=== PATIENT | female | born 1950 | race Two or more races ===

== ENCOUNTER → 2020-12-17 | Outpatient (REF) | payer BC ==
[2020-12-17 13:52] LABS: HEMATOCRIT 39.8 % (36.0-47.0); HEMOGLOBIN 12.3 g/dl (12.0-15.5); MEAN CORPUSCULAR HEMOGLOBIN 29.1 pg (27.0-33.0); MEAN CORPUSCULAR HGB CONC 30.9 g/dl (32.0-36.5); MEAN CORPUSCULAR VOLUME 94.3 fl (80.0-96.0); PLATELET COUNT, AUTOMATED 329 10^3/uL (150-450); RED BLOOD COUNT 4.22 10^6/uL (4.00-5.40); WHITE BLOOD COUNT 5.4 10^3/uL (4.0-10.0)
[2020-12-17 14:26] LABS: ALBUMIN 3.7 GM/DL (3.2-5.2); BILIRUBIN,TOTAL 0.3 MG/DL (0.2-1.0); CALCIUM LEVEL 9.6 MG/DL (8.8-10.2); CHOLESTEROL RISK RATIO 2.04 (<5); GLOMERULAR FILTRATION RATE 58.4 (>39); POTASSIUM SERUM 3.8 MEQ/L (3.5-5.1); TOTAL PROTEIN 6.6 GM/DL (6.4-8.2)
[2020-12-17 14:32] LABS: TOTAL 25(OH) VITAMIN D 35.6 NG/ML (30.0-100.0)
== END ==
LOC: M SFHCPLAZ 11:58
PROVIDERS: ATTEND Physician Assistant
DX: E78.2 Mixed hyperlipidemia (principal); J45.40 Moderate persistent asthma, uncomplicated; I11.9 Hypertensive heart disease without heart failure; Z00.00 Encounter for general adult medical examination without abnormal findings

== ENCOUNTER → 2020-12-24 | Outpatient (REF) | payer BC ==
[2020-12-24 15:56] LABS: MALB URINE SIEMENS 9.2 MG/L; MAU/CREAT RATIO 3.4 MCG/MG (0.0-30.0)
== END ==
LOC: M SFHCPLAZ 14:47
PROVIDERS: ATTEND Physician Assistant
DX: I11.9 Hypertensive heart disease without heart failure (principal)

== ENCOUNTER → 2020-12-24 | Outpatient (CLI) | payer BC ==
--- NOTE | 2021-01-01 13:37 | REPMRS ---
Patient History The patient states she has not had a clinical breast exam in over a year. Patient is postmenopausal. Family history of breast cancer at age 72 in sister, prostate cancer at age 68 in father. Digital Woman Screen Mammo: December 24, 2020 - Exam #: [id number] Bilateral CC and MLO view(s) were taken. Technologist: Amy Mcclendon, Technologist Prior study comparison: October 26, 2019, bilateral digital mammo screening bilat, performed at [facility]. September 22, 2018, bilateral digital mammo screening bilat, performed at [facility]. August 21, 2017, bilateral digital mammo screening bilat, performed at [facility]. FINDINGS: There are scattered fibroglandular densities. The Volpara volumetric breast density category is:B. There has been no change in the appearance of the mammogram from the prior studies. There is a mild amount of scattered fibroglandular density which is fairly symmetric. There is no interval development of dominant mass, architectural distortion, or grouped microcalcification suggestive of malignancy. 3-D tomosynthesis shows no additional findings. Assessment: BI-RADS/ACR category 1 mammogram. Negative Mammogram. Recommendation Routine screening mammogram of both breasts in 1 year (for women over age 40). This patient's [facility] Lifetime Breast Cancer Risk is estimated at 5.6 %. This mammogram was interpreted with the aid of an FDA-approved computer-aided dectection system. Electronically Signed By: Bertin Jones MD 01/01/21 [id number]
== END ==
LOC: M WHC 12:27
PROVIDERS: ATTEND Physician Assistant
DX: Z12.31 Encounter for screening mammogram for malignant neoplasm of breast (principal)

== ENCOUNTER → 2021-01-21 | Outpatient (REF) | payer BC ==
[2021-01-21 14:37] LABS: HEMOGLOBIN A1c 5.8 %
== END ==
LOC: M SFHCPLAZ 11:20
PROVIDERS: ATTEND Physician Assistant
DX: R73.01 Impaired fasting glucose (principal)

== ENCOUNTER → 2021-07-23 | Outpatient (CLI) | payer BC ==
--- NOTE | 2021-07-23 09:47 | REP ---
INDICATION: RIGHT KNEE OSTEOARTHRITIS COMPARISON: None. TECHNIQUE: PA and lateral. FINDINGS: The mediastinum and cardiac silhouette are normal. The lung jack are clear and without acute consolidation, effusion, or pneumothorax. The skeletal structures are intact and normal. IMPRESSION: No acute cardiopulmonary process. <Electronically signed by Fritz Young > 07/23/21 [id number]
[2021-07-23 10:22] LABS: HEMOGLOBIN 12.1 g/dl (12.0-15.5); MEAN CORPUSCULAR HEMOGLOBIN 30.1 pg (27.0-33.0); MEAN CORPUSCULAR HGB CONC 31.8 g/dl (32.0-36.5); MEAN CORPUSCULAR VOLUME 94.5 fl (80.0-96.0); PLATELET COUNT, AUTOMATED 363 10^3/uL (150-450); RED BLOOD COUNT 4.02 10^6/uL (4.00-5.40); WHITE BLOOD COUNT 5.2 10^3/uL (4.0-10.0)
[2021-07-23 10:34] LABS: INR 0.96; PROTHROMBIN TIME 13.2 SECONDS (12.7-14.5)
[2021-07-23 10:43] LABS: ALBUMIN 3.7 GM/DL (3.2-5.2); BILIRUBIN,TOTAL 0.3 MG/DL (0.2-1.0); CALCIUM LEVEL 9.8 MG/DL (8.8-10.2); CREATININE FOR GFR 0.99 MG/DL (0.55-1.30); GLOMERULAR FILTRATION RATE 58.9 (>39); POTASSIUM SERUM 4.1 MEQ/L (3.5-5.1); TOTAL PROTEIN 6.8 GM/DL (6.4-8.2)
[2021-07-23 11:04] LABS: ERYTHROCYTE SEDIMENTATION RATE 16 mm/hr (0-30)
--- NOTE | 2021-07-23 21:21 | ECGEPIP ---
[facility] Test Date: 2021-07-23 Pat Name: JOSE GRIMES Department: Room: - Gender: Female Ocularist: [facility] : 1950 Requested By: Uriel Pittman Order Number: [id number] Reading MD: Julian Nelson Measurements Intervals [place] Rate: 75 P: 28 [place]: 124 QRS: 31 QRSD: 98 T: 27 QT: 384 QTc: 428 Interpretive Statements Normal sinus rhythm Incomplete right bundle branch block Nonspecific T wave abnormality Comparison tracing not on file Electronically Signed on 07-23-2021 21:21:02 EDT by Julian Nelson
== END ==
LOC: M LAB 09:10
PROVIDERS: ATTEND Orthopaedic Surgery
DX: Z01.818 Encounter for other preprocedural examination (principal)

== ENCOUNTER → 2021-12-17 | Outpatient (CLI) | payer BC ==
[2021-12-17 15:30] LABS: BASO % 0.3 % (0.0-1.0); EOS # 0.1 10^3/uL (0.0-0.5); EOS % 1.3 % (0.0-3.0); HEMOGLOBIN 12.7 g/dl (12.0-15.5); LYMPH # 0.9 10^3/uL (1.5-5.0); LYMPH % 14.7 % (24.0-44.0); MEAN CORPUSCULAR HEMOGLOBIN 29.5 pg (27.0-33.0); MEAN CORPUSCULAR HGB CONC 32.6 g/dl (32.0-36.5); MEAN CORPUSCULAR VOLUME 90.5 fl (80.0-96.0); MONO # 0.6 10^3/uL (0.0-0.8); MONO % 10.5 % (2.0-8.0); NEUTROPHILS # 4.5 10^3/uL (1.5-8.5); NEUTROPHILS % 72.9 % (36.0-66.0); PLATELET COUNT, AUTOMATED 338 10^3/uL (150-450); RED BLOOD COUNT 4.31 10^6/uL (4.00-5.40); WHITE BLOOD COUNT 6.1 10^3/uL (4.0-10.0)
[2021-12-17 16:00] LABS: ALBUMIN 3.9 GM/DL (3.2-5.2); ALT/SGPT 23 U/L (12-78); BILIRUBIN,TOTAL 0.3 MG/DL (0.2-1.0); BLOOD UREA NITROGEN 14 MG/DL (7-18); CARBON DIOXIDE LEVEL 33 MEQ/L (21-32); CHLORIDE LEVEL 106 MEQ/L (98-107); CHOLESTEROL LEVEL 232 MG/DL (<200); CHOLESTEROL RISK RATIO 2.367 (<5); CREATININE FOR GFR 0.88 MG/DL (0.55-1.30); GLOMERULAR FILTRATION RATE > 60.0 (>39); GLUCOSE, FASTING 87 MG/DL (70-100); HDL CHOLESTEROL 98 MG/DL (>40); HEMOGLOBIN A1c 5.8 %; LDL CHOLESTEROL 117 MG/DL (<100); NON-HDL-C 134 MG/DL; POTASSIUM SERUM 4.1 MEQ/L (3.5-5.1); SODIUM LEVEL 142 MEQ/L (136-145); TOTAL PROTEIN 6.8 GM/DL (6.4-8.2); TRIGLYCERIDES LEVEL 87 MG/DL (<150)
[2021-12-17 16:09] LABS: TOTAL 25(OH) VITAMIN D 37.4 NG/ML (30.0-100.0)
== END ==
LOC: M PLALAB 11:58
PROVIDERS: ATTEND Nurse Practitioner Family
DX: E55.9 Vitamin D deficiency, unspecified (principal)

== ENCOUNTER → 2021-12-25 | Outpatient (CLI) | payer BC | LOC: M WHC 13:36 | PROVIDERS: ATTEND Family Medicine | DX: Z12.31 Encounter for screening mammogram for malignant neoplasm of breast (principal) ==

== ENCOUNTER → 2022-07-04 | Outpatient (CLI) | payer BC ==
[2022-07-04 13:34] LABS: BASO # 0.1 10^3/uL (0.0-0.2); BASO % 1.4 % (0.0-1.0); EOS # 0.2 10^3/uL (0.0-0.5); EOS % 5.4 % (0.0-3.0); HEMATOCRIT 39.9 % (36.0-47.0); HEMOGLOBIN 12.4 g/dl (12.0-15.5); LYMPH # 1.5 10^3/uL (1.5-5.0); LYMPH % 33.8 % (24.0-44.0); MEAN CORPUSCULAR HEMOGLOBIN 29.7 pg (27.0-33.0); MEAN CORPUSCULAR HGB CONC 31.1 g/dl (32.0-36.5); MEAN CORPUSCULAR VOLUME 95.5 fl (80.0-96.0); MONO # 0.5 10^3/uL (0.0-0.8); MONO % 11.2 % (2.0-8.0); NEUTROPHILS # 2.1 10^3/uL (1.5-8.5); NEUTROPHILS % 47.7 % (36.0-66.0); PLATELET COUNT, AUTOMATED 374 10^3/uL (150-450); RED BLOOD COUNT 4.18 10^6/uL (4.00-5.40); WHITE BLOOD COUNT 4.3 10^3/uL (4.0-10.0)
[2022-07-04 14:51] LABS: ALBUMIN 3.8 GM/DL (3.2-5.2); BILIRUBIN,TOTAL 0.3 MG/DL (0.2-1.0); CALCIUM LEVEL 9.6 MG/DL (8.8-10.2); CHOLESTEROL RISK RATIO 2.113 (<5); CREATININE FOR GFR 1.01 MG/DL (0.55-1.30); GLOMERULAR FILTRATION RATE 57.4 (>39); POTASSIUM SERUM 4.1 MEQ/L (3.5-5.1)
[2022-07-04 15:27] LABS: HEMOGLOBIN A1c 5.7 %
== END ==
LOC: M PLALAB 10:26
PROVIDERS: ATTEND Nurse Practitioner Family
DX: R73.01 Impaired fasting glucose (principal)

== ENCOUNTER → 2022-08-20 | Outpatient (REF) | payer BC ==
[2022-08-20 17:21] LABS: APPEARANCE, URINE MANUAL CLEAR (CLEAR); COLOR, URINE MANUAL YELLOW (YELLOW)
[2022-08-20 17:22] LABS: BILIRUBIN, URINE MANUAL NEGATIVE (NEGATIVE); BLOOD URINE MANUAL TRACE (NEGATIVE); GLUCOSE, URINE (UA) MANUAL NEGATIVE (NEGATIVE); KETONE, URINE MANUAL NEGATIVE (NEGATIVE); LEUKOCYTE ESTERASE, URINE MAN NEGATIVE (NEGATIVE); NITRITE, URINE MANUAL NEGATIVE (NEGATIVE); PROTEIN, URINE MANUAL TRACE mg/dL (NEGATIVE); SPECIFIC GRAVITY,URINE MANUAL 1.015 (1.002-1.035); UROBILINOGEN, URINE MANUAL NORMAL (NORMAL)
[2022-08-20 18:11] LABS: RBC, URINE 0-1 /hpf (0-3)
[2022-08-20 18:12] LABS: BACTERIA, URINE SMALL AMOUNT; HYALINE CAST, URINE 0-1 /lpf (0-1); SQUAMOUS EPITHELIAL CELL URINE SMALL AMOUNT /hpf (SMALL AMT)
== END ==
LOC: M SMT 16:44
PROVIDERS: ATTEND Urology
DX: N32.81 Overactive bladder (principal)

== ENCOUNTER 2022-09-07 13:00 | Emergency (ER) | payer BC ==
[~2022-09-07] VITALS: Ht 157.5 cm; Wt 86.4 kg
[2022-09-07 13:01] VITALS: BP 160/76
[2022-09-07] MEDS ORDERED: TRIA1OI TOP (13:53)
[2022-09-07] MEDS ORDERED: PRED20TA PO (13:53)
== END 2022-09-07 14:16 | disposition home or self-care (01) ==
LOC: M ED 13:00
DX: L20.9 Atopic dermatitis, unspecified (principal); J45.909 Unspecified asthma, uncomplicated; K21.9 Gastro-esophageal reflux disease without esophagitis; Z79.899 Other long term (current) drug therapy

== ENCOUNTER → 2022-12-01 | Outpatient (CLI) | payer BC, MEDICARE ==
[~2022-12-01] MED LIST: PRED20TA PO; TRIA1OI TOP
[2022-12-01 14:05] LABS: HEMATOCRIT 38.7 % (36.0-47.0); MEAN CORPUSCULAR HEMOGLOBIN 29.3 pg (27.0-33.0); MEAN CORPUSCULAR VOLUME 94.6 fl (80.0-96.0); PLATELET COUNT, AUTOMATED 372 10^3/uL (150-450); RED BLOOD COUNT 4.09 10^6/uL (4.00-5.40); WHITE BLOOD COUNT 4.9 10^3/uL (4.0-10.0)
[2022-12-01 14:15] LABS: ALBUMIN 3.6 G/DL (3.2-5.2); ALKALINE PHOSPHATASE 54 U/L (46-116); ALT/SGPT 21 U/L (7.0-40); AST/SGOT 22 U/L (<34); BILIRUBIN,TOTAL 0.3 MG/DL (0.3-1.2); BLOOD UREA NITROGEN 12 MG/DL (9-23); CALCIUM LEVEL 9.8 MG/DL (8.3-10.6); CARBON DIOXIDE LEVEL 32 MMOL/L (20-31); CHLORIDE LEVEL 104 MMOL/L (98-107); CREATININE FOR GFR 0.84 MG/DL (0.55-1.30); GLOMERULAR FILTRATION RATE > 60.0 (>39); GLUCOSE, FASTING 89 MG/DL (74-106); POTASSIUM SERUM 4.1 MMOL/L (3.5-5.1); SODIUM LEVEL 142 MMOL/L (136-145); TOTAL PROTEIN 6.4 G/DL (5.7-8.2)
[2022-12-01 14:16] LABS: INR 0.9; PROTHROMBIN TIME 12.3 SECONDS (12.5-14.5)
== END ==
LOC: M PLALAB 10:34
PROVIDERS: ATTEND Urology
DX: N32.81 Overactive bladder (principal)

== ENCOUNTER → 2022-12-08 | Outpatient (CLI) | payer BC, MEDICARE ==
[~2022-12-08] MED LIST changes: +ALBU2.5V10 INH; +BREO1INH3 INH; +ESOM40CA35 PO; +FENO160T10 PO; +HM C500T4 PO; +NIFE1TAB52 PO; +PAIN PATCH TOP; +PRAV80TA2 PO; +TACR0.1O4 TOP; +VALS1TAB67 PO; +VENTAER INH; +VITA100093 PO; +[UNRECOGNIZED DRUG - OTHER] PO
== END ==
LOC: M LABSMTC 11:55
PROVIDERS: ATTEND Anesthesiology
DX: Z01.812 Encounter for preprocedural laboratory examination (principal)

== ENCOUNTER 2022-12-11 06:06 | Day surgery (SDC) | payer BC, MEDICARE ==
[~2022-12-11] VITALS: Ht 157.5 cm; Wt 89.8 kg
[~2022-12-11 06:06] MED LIST changes: +ceFAZolin SOD 2 GM in IV 1 EA IV ONE
[2022-12-11] MEDS ORDERED: LR 1,000 ML IV SCH (06:40)
[2022-12-11] MEDS ORDERED: propofoL 200 MG/20 ML VIAL As Ordered ONE (07:11)
[2022-12-11] MEDS ORDERED: ONDANSETRON 4MG 2ML VIAL As Ordered ONE (07:11)
[2022-12-11] MEDS ORDERED: LIDOCAINE 2% 100MG/5ML SDV (FOR ANES.) As Ordered ONE (07:11)
[2022-12-11] MEDS ORDERED: MIDAZOLAM INJ 2MG/2ML VIAL As Ordered ONE (07:11)
[2022-12-11] MEDS ORDERED: LIDOCAINE 1% SDV 30ML VIAL As Ordered ONE ×2 (07:14→07:52)
[2022-12-11] MEDS ORDERED: CLEO300C2 PO (08:08)
[2022-12-11 09:23] VITALS: BP 162/88
== END 2022-12-11 09:36 | disposition home or self-care (01) ==
LOC: M SDC 06:06
PROVIDERS: ATTEND Urology
DX: N32.81 Overactive bladder (principal); I10 Essential (primary) hypertension; E78.5 Hyperlipidemia, unspecified; K21.9 Gastro-esophageal reflux disease without esophagitis; J45.909 Unspecified asthma, uncomplicated; G47.30 Sleep apnea, unspecified; Z88.0 Allergy status to penicillin; Z88.8 Allergy status to other drugs, medicaments and biological substances; Z79.51 Long term (current) use of inhaled steroids; Z79.899 Other long term (current) drug therapy
CPT/HCPCS: 64561; 76000; C1787; J0690; J1100; J2250; J2405

== ENCOUNTER → 2022-12-22 | Outpatient (CLI) | payer BC, MEDICARE ==
[~2022-12-22] MED LIST changes: +CLEO300C2 PO; -ceFAZolin SOD 2 GM in IV 1 EA IV ONE
== END ==
LOC: M LABSMTC 10:30
PROVIDERS: ATTEND Urology
DX: Z01.812 Encounter for preprocedural laboratory examination (principal); Z11.52 Encounter for screening for COVID-19

== ENCOUNTER 2022-12-24 06:15 | Day surgery (SDC) | payer MEDICARE, BC ==
[~2022-12-24] VITALS: Ht 157.5 cm; Wt 89.7 kg
[~2022-12-24 06:15] MED LIST changes: +ceFAZolin SOD 2 GM in IV 1 EA IV ONE
[2022-12-24] MEDS ORDERED: fentaNYL 100 MCG/2 ML INJECTION As Ordered ONE (06:53)
[2022-12-24] MEDS ORDERED: ACETAMINOPHEN 1000MG 100ML IV BAG As Ordered ONE (06:55)
[2022-12-24] MEDS ORDERED: LIDOCAINE 2% 100MG/5ML SDV (FOR ANES.) As Ordered ONE (06:55)
[2022-12-24] MEDS ORDERED: ONDANSETRON 4MG 2ML VIAL As Ordered ONE (06:55)
[2022-12-24] MEDS ORDERED: propofoL 200 MG/20 ML VIAL As Ordered ONE (06:55)
[2022-12-24] MEDS ORDERED: LR 1,000 ML IV SCH (07:05)
[2022-12-24] MEDS ORDERED: LIDOCAINE 1% SDV 30ML VIAL As Ordered ONE ×2 (07:23→08:01)
[2022-12-24] MEDS ORDERED: ceFAZolin 1GM VIAL As Ordered ONE (07:25)
[2022-12-24] MEDS ORDERED: CLIN-250 PO (08:49)
[2022-12-24] MEDS ORDERED: HYDR-3713 PO (08:49)
[2022-12-24 09:54] VITALS: BP 135/72
== END 2022-12-24 10:10 | disposition home or self-care (01) ==
LOC: M SDC 06:15
PROVIDERS: ATTEND Urology
DX: N32.81 Overactive bladder (principal); I10 Essential (primary) hypertension; E78.5 Hyperlipidemia, unspecified; K21.9 Gastro-esophageal reflux disease without esophagitis; J45.40 Moderate persistent asthma, uncomplicated; Z79.51 Long term (current) use of inhaled steroids; Z79.899 Other long term (current) drug therapy; E55.9 Vitamin D deficiency, unspecified; J30.89 Other allergic rhinitis; Z88.0 Allergy status to penicillin; Z88.1 Allergy status to other antibiotic agents
CPT/HCPCS: 64581; 64590; 76000; C1778; C1787; C1897; J0131; J0690; J1100; J2405; J3010

== ENCOUNTER → 2023-01-02 | Outpatient (CLI) | payer BC, MEDICARE ==
[~2023-01-02] MED LIST changes: +CLIN-250 PO; +HYDR-3713 PO; -ceFAZolin SOD 2 GM in IV 1 EA IV ONE
[2023-01-02 14:18] LABS: BASO # 0.1 10^3/uL (0.0-0.2); BASO % 1.4 % (0.0-1.0); EOS # 0.4 10^3/uL (0.0-0.5); EOS % 7.4 % (0.0-3.0); HEMOGLOBIN 11.6 g/dl (12.0-15.5); LYMPH # 1.4 10^3/uL (1.5-5.0); LYMPH % 24.7 % (24.0-44.0); MEAN CORPUSCULAR HEMOGLOBIN 29.8 pg (27.0-33.0); MEAN CORPUSCULAR HGB CONC 31.4 g/dl (32.0-36.5); MEAN CORPUSCULAR VOLUME 95.1 fl (80.0-96.0); MONO # 0.6 10^3/uL (0.0-0.8); MONO % 10.5 % (2.0-8.0); NEUTROPHILS # 3.1 10^3/uL (1.5-8.5); NEUTROPHILS % 55.3 % (36.0-66.0); PLATELET COUNT, AUTOMATED 405 10^3/uL (150-450); RED BLOOD COUNT 3.89 10^6/uL (4.00-5.40); WHITE BLOOD COUNT 5.5 10^3/uL (4.0-10.0)
[2023-01-02 14:44] LABS: HEMOGLOBIN A1c 5.6 % (4.0-6.0)
[2023-01-02 14:49] LABS: ALBUMIN 3.6 G/DL (3.2-5.2); ALKALINE PHOSPHATASE 50 U/L (46-116); ALT/SGPT 26 U/L (7.0-40); AST/SGOT 19 U/L (<34); BILIRUBIN,TOTAL 0.4 MG/DL (0.3-1.2); BLOOD UREA NITROGEN 12 MG/DL (9-23); CALCIUM LEVEL 9.2 MG/DL (8.3-10.6); CARBON DIOXIDE LEVEL 32 MMOL/L (20-31); CHLORIDE LEVEL 107 MMOL/L (98-107); CHOLESTEROL LEVEL 190 MG/DL (<200); CHOLESTEROL RISK RATIO 2.25 (<5); CREATININE FOR GFR 0.89 MG/DL (0.55-1.30); GLOMERULAR FILTRATION RATE > 60.0 (>39); GLUCOSE, FASTING 86 MG/DL (74-106); HDL CHOLESTEROL 84.3 MG/DL (>40); LDL CHOLESTEROL 92.9 MG/DL (<100); NON-HDL-C 105.7 MG/DL; POTASSIUM SERUM 4.1 MMOL/L (3.5-5.1); SODIUM LEVEL 143 MMOL/L (136-145); TOTAL PROTEIN 6.2 G/DL (5.7-8.2); TRIGLYCERIDES LEVEL 64 MG/DL (<150)
[2023-01-02 14:51] LABS: TOTAL 25(OH) VITAMIN D 46.4 NG/ML (20.0-100.0)
== END ==
LOC: M PLALAB 11:45
PROVIDERS: ATTEND Nurse Practitioner Family
DX: I11.9 Hypertensive heart disease without heart failure (principal)

== ENCOUNTER → 2023-01-06 | Outpatient (CLI) | payer BC, MEDICARE | LOC: M WHC 08:34 | PROVIDERS: ATTEND Nurse Practitioner Family | DX: Z12.31 Encounter for screening mammogram for malignant neoplasm of breast (principal); Z13.820 Encounter for screening for osteoporosis ==

== ENCOUNTER 2023-03-30 13:09 | Emergency (ER) | payer BC, MEDICARE ==
[~2023-03-30] VITALS: Ht 157.5 cm; Wt 87.5 kg
[2023-03-30] MEDS ORDERED: TACR0.1O4 TOP (16:01)
[2023-03-30] MEDS ORDERED: CLEO300C2 PO (16:01)
[2023-03-30 16:07] VITALS: BP 155/76; TEMP 97.7; O2SAT 98
== END 2023-03-30 16:09 | disposition home or self-care (01) ==
LOC: M ED 13:09
DX: L03.113 Cellulitis of right upper limb (principal); L30.9 Dermatitis, unspecified; E11.9 Type 2 diabetes mellitus without complications; I10 Essential (primary) hypertension; E78.5 Hyperlipidemia, unspecified; K21.9 Gastro-esophageal reflux disease without esophagitis; F41.9 Anxiety disorder, unspecified; Z88.1 Allergy status to other antibiotic agents; Z88.8 Allergy status to other drugs, medicaments and biological substances; Z79.52 Long term (current) use of systemic steroids; Z79.899 Other long term (current) drug therapy

== ENCOUNTER 2023-04-05 13:26 | Emergency (ER) | payer BC, MEDICARE, OTHER ==
[~2023-04-05] VITALS: Ht 157.5 cm; Wt 87.3 kg
[2023-04-05] MEDS ORDERED: HYDROCORTISONE 1% OINTMENT 30GM TOP STA (16:16)
[2023-04-05 16:35] LABS: BASO # 0.1 10^3/uL (0.0-0.2); BASO % 0.8 % (0.0-1.0); EOS # 0.2 10^3/uL (0.0-0.5); EOS % 2.8 % (0.0-3.0); HEMATOCRIT 39.4 % (36.0-47.0); HEMOGLOBIN 12.5 g/dl (12.0-15.5); LYMPH # 1.5 10^3/uL (1.5-5.0); LYMPH % 23.3 % (24.0-44.0); MEAN CORPUSCULAR HEMOGLOBIN 29.9 pg (27.0-33.0); MEAN CORPUSCULAR HGB CONC 31.7 g/dl (32.0-36.5); MEAN CORPUSCULAR VOLUME 94.3 fl (80.0-96.0); MONO # 0.6 10^3/uL (0.0-0.8); MONO % 9.5 % (2.0-8.0); NEUTROPHILS # 4.1 10^3/uL (1.5-8.5); PLATELET COUNT, AUTOMATED 356 10^3/uL (150-450); RED BLOOD COUNT 4.18 10^6/uL (4.00-5.40); WHITE BLOOD COUNT 6.5 10^3/uL (4.0-10.0)
[2023-04-05 16:43] LABS: ERYTHROCYTE SEDIMENTATION RATE 21 mm/hr (0-30)
[2023-04-05 17:10] LABS: C REACTIVE PROTEIN QUANTITATIV 0.4 MG/DL (<1.0); CALCIUM LEVEL 9.1 MG/DL (8.3-10.6); CREATININE FOR GFR 1.05 MG/DL (0.55-1.30); GLOMERULAR FILTRATION RATE 54.8 (>39); POTASSIUM SERUM 4.1 MMOL/L (3.5-5.1)
[2023-04-05] MEDS ORDERED: HYDR1CRE30 TOP (17:27)
[2023-04-05 17:36] VITALS: BP 157/86; TEMP 96.4; O2SAT 95
== END 2023-04-05 17:38 | disposition home or self-care (01) ==
LOC: M ED 13:26
DX: T63.481A Toxic effect of venom of other arthropod, accidental (unintentional), initial encounter (principal); J45.909 Unspecified asthma, uncomplicated; I10 Essential (primary) hypertension; K21.9 Gastro-esophageal reflux disease without esophagitis; Z88.1 Allergy status to other antibiotic agents; Z88.8 Allergy status to other drugs, medicaments and biological substances; Z79.52 Long term (current) use of systemic steroids; Z79.899 Other long term (current) drug therapy

== ENCOUNTER → 2023-04-10 | Outpatient (CLI) | payer MEDICARE, BC ==
[~2023-04-10] MED LIST changes: +HYDR1CRE30 TOP
[2023-04-10 12:56] LABS: BASO % 0.9 % (0.0-1.0); EOS # 0.2 10^3/uL (0.0-0.5); EOS % 4.7 % (0.0-3.0); HEMATOCRIT 38.8 % (36.0-47.0); HEMOGLOBIN 12.3 g/dl (12.0-15.5); LYMPH # 1.4 10^3/uL (1.5-5.0); LYMPH % 31.1 % (24.0-44.0); MEAN CORPUSCULAR HEMOGLOBIN 29.6 pg (27.0-33.0); MEAN CORPUSCULAR HGB CONC 31.7 g/dl (32.0-36.5); MEAN CORPUSCULAR VOLUME 93.5 fl (80.0-96.0); MONO # 0.5 10^3/uL (0.0-0.8); MONO % 10.7 % (2.0-8.0); NEUTROPHILS # 2.3 10^3/uL (1.5-8.5); NEUTROPHILS % 52.2 % (36.0-66.0); PLATELET COUNT, AUTOMATED 339 10^3/uL (150-450); RED BLOOD COUNT 4.15 10^6/uL (4.00-5.40); WHITE BLOOD COUNT 4.5 10^3/uL (4.0-10.0)
[2023-04-10 13:00] LABS: ALBUMIN 3.5 G/DL (3.2-5.2); ALKALINE PHOSPHATASE 45 U/L (46-116); ALT/SGPT 20 U/L (7.0-40); AST/SGOT 16 U/L (<34); BILIRUBIN,TOTAL 0.4 MG/DL (0.3-1.2); BLOOD UREA NITROGEN 10 MG/DL (9-23); CALCIUM LEVEL 10.4 MG/DL (8.3-10.6); CARBON DIOXIDE LEVEL 34 MMOL/L (20-31); CHLORIDE LEVEL 104 MMOL/L (98-107); CREATININE FOR GFR 0.94 MG/DL (0.55-1.30); GLOMERULAR FILTRATION RATE > 60.0 (>39); GLUCOSE, FASTING 84 MG/DL (74-106); POTASSIUM SERUM 4.4 MMOL/L (3.5-5.1); SODIUM LEVEL 143 MMOL/L (136-145); TOTAL PROTEIN 6.3 G/DL (5.7-8.2)
[2023-04-10 13:20] LABS: HEPATITIS B SURFACE ANTIGEN NEGATIVE (NEGATIVE)
[2023-04-10 13:33] LABS: HIV 1&2 SCREEN NEGATIVE (NEGATIVE)
[2023-04-10 13:41] LABS: HEPATITIS B CORE ANTIBODY IGM NEGATIVE (NEGATIVE); HEPATITIS C VIRUS ABY INDEX 0.08 INDEX (<0.8)
== END ==
LOC: M LAB 11:49
PROVIDERS: ATTEND Nurse Practitioner Family
DX: L30.9 Dermatitis, unspecified (principal)

== ENCOUNTER 2023-04-19 10:01 | Emergency (ER) | payer MEDICARE, BC ==
[~2023-04-19] VITALS: Ht 157.5 cm; Wt 89.3 kg
[2023-04-19] MEDS ORDERED: LEVOTAB10 (10:19)
[2023-04-19] MEDS ORDERED: TRIA1CR80 (10:19)
[2023-04-19] MEDS ORDERED: DOXY100C3 (10:19)
[2023-04-19] MEDS ORDERED: diphenhydrAMINE CREAM 30GM TOP STA (12:47)
[2023-04-19 13:39] LABS: BASO % 0.2 % (0.0-1.0); EOS # 0.2 10^3/uL (0.0-0.5); EOS % 2.2 % (0.0-3.0); HEMATOCRIT 40.5 % (36.0-47.0); HEMOGLOBIN 12.7 g/dl (12.0-15.5); LYMPH # 1.2 10^3/uL (1.5-5.0); LYMPH % 12.6 % (24.0-44.0); MEAN CORPUSCULAR HEMOGLOBIN 29.3 pg (27.0-33.0); MEAN CORPUSCULAR HGB CONC 31.4 g/dl (32.0-36.5); MEAN CORPUSCULAR VOLUME 93.5 fl (80.0-96.0); MONO # 0.6 10^3/uL (0.0-0.8); MONO % 6.8 % (2.0-8.0); NEUTROPHILS # 7.3 10^3/uL (1.5-8.5); NEUTROPHILS % 77.8 % (36.0-66.0); PLATELET COUNT, AUTOMATED 265 10^3/uL (150-450); RED BLOOD COUNT 4.33 10^6/uL (4.00-5.40); WHITE BLOOD COUNT 9.4 10^3/uL (4.0-10.0)
[2023-04-19 13:48] LABS: ERYTHROCYTE SEDIMENTATION RATE 10 mm/hr (0-30)
[2023-04-19 14:32] VITALS: BP 152/75; TEMP 99.1; O2SAT 99
[2023-04-19] MEDS ORDERED: BENA2CRE3 TOP (14:41)
[2023-04-19] MEDS ORDERED: BENA25CA4 PO (14:41)
== END 2023-04-19 14:52 | disposition home or self-care (01) ==
LOC: M ED 10:01
DX: T50.905A Adverse effect of unspecified drugs, medicaments and biological substances, initial encounter (principal); M25.431 Effusion, right wrist; J45.909 Unspecified asthma, uncomplicated; E78.5 Hyperlipidemia, unspecified; K21.9 Gastro-esophageal reflux disease without esophagitis; I10 Essential (primary) hypertension; E11.9 Type 2 diabetes mellitus without complications; Z88.1 Allergy status to other antibiotic agents; Z79.52 Long term (current) use of systemic steroids; Z79.899 Other long term (current) drug therapy

== ENCOUNTER → 2023-05-28 | Outpatient (REF) | payer BC ==
[~2023-05-28] MED LIST changes: +BENA25CA4 PO; +BENA2CRE3 TOP; +DOXY100C3; +LEVOTAB10; +TRIA1CR80
== END ==
LOC: M SFHCDERM 13:32
PROVIDERS: ATTEND Nurse Practitioner Family
DX: L12.0 Bullous pemphigoid (principal); Z53.9 Procedure and treatment not carried out, unspecified reason

== ENCOUNTER → 2023-05-29 | Outpatient (CLI) | payer BC ==
[2023-05-29 12:47] LABS: C REACTIVE PROTEIN QUANTITATIV 0.7 MG/DL (<1.0)
[2023-05-29 12:48] LABS: COMPLEMENT C3 175.9 MG/DL (90.0-170.0); COMPLEMENT C4 24.3 MG/DL (12-36); IMMUNOGLOBULIN A 119.6 MG/DL (40-350)
== END ==
LOC: M LAB 11:13
PROVIDERS: ATTEND Nurse Practitioner Family
DX: R21 Rash and other nonspecific skin eruption (principal)

== ENCOUNTER → 2023-06-09 | Outpatient (CLI) | payer BC, MEDICARE ==
[2023-06-09 14:12] LABS: C REACTIVE PROTEIN QUANTITATIV 2.9 MG/DL (<1.0)
[2023-06-09 14:13] LABS: COMPLEMENT C4 27.6 MG/DL (12-36); IMMUNOGLOBULIN A 114.3 MG/DL (40-350); IMMUNOGLOBULIN M 44.2 MG/DL (50-300)
== END ==
LOC: M LAB 12:49
PROVIDERS: ATTEND Nurse Practitioner Family
DX: R21 Rash and other nonspecific skin eruption (principal)

== ENCOUNTER → 2023-11-11 | Outpatient (REF) | payer MEDICARE, BC ==
[2023-11-11 18:03] LABS: AMORPHOUS SEDIMENT SMALL (NEGATIVE); APPEARANCE, URINE CLOUDY (CLEAR); BACTERIA, URINE AUTO NEGATIVE (NEGATIVE); BILIRUBIN, URINE AUTO NEGATIVE (NEGATIVE); BLOOD, URINE BLOOD NEGATIVE (NEGATIVE); COLOR, URINE AMBER (YELLOW); GLUCOSE, URINE (UA) AUTO NEGATIVE (NEGATIVE); KETONE, URINE AUTO NEGATIVE (NEGATIVE); LEUKOCYTE ESTERASE, URINE AUTO 3+ (NEGATIVE); MUCUS, URINE SMALL (NEGATIVE); NITRITE, URINE AUTO NEGATIVE (NEGATIVE); PROTEIN, URINE AUTO 1+ mg/dL (NEGATIVE); RBC, URINE AUTO 15 /HPF (0-3); SPECIFIC GRAVITY URINE AUTO 1.024 (1.002-1.035); SQUAMOUS EPITHELIAL CELL UR AU 6 /HPF (0-6); UROBILINOGEN, URINE AUTO 0.2 mg/dL (0.0-2.0); WBC, URINE AUTO TNTC /HPF (0-3)
== END ==
LOC: M SFHCPLAZ 17:07
PROVIDERS: ATTEND Nurse Practitioner Family
DX: R39.9 Unspecified symptoms and signs involving the genitourinary system (principal)

== ENCOUNTER → 2023-11-24 | Outpatient (REF) | payer BC | LOC: M SFHCPLAZ 13:16 | PROVIDERS: ATTEND Nurse Practitioner Family | DX: N39.0 Urinary tract infection, site not specified (principal) ==

== ENCOUNTER → 2024-01-04 | Outpatient (CLI) | payer MEDICARE ==
[2024-01-04 16:11] LABS: BASO # 0.1 10^3/uL (0.0-0.2); BASO % 1.5 % (0.0-1.0); EOS # 0.1 10^3/uL (0.0-0.5); HEMATOCRIT 39.8 % (36.0-47.0); HEMOGLOBIN 12.6 g/dl (12.0-15.5); LYMPH # 1.4 10^3/uL (1.5-5.0); LYMPH % 30.8 % (24.0-44.0); MEAN CORPUSCULAR HEMOGLOBIN 29.9 pg (27.0-33.0); MEAN CORPUSCULAR HGB CONC 31.7 g/dl (32.0-36.5); MEAN CORPUSCULAR VOLUME 94.3 fl (80.0-96.0); MONO # 0.5 10^3/uL (0.0-0.8); MONO % 10.3 % (2.0-8.0); NEUTROPHILS # 2.5 10^3/uL (1.5-8.5); PLATELET COUNT, AUTOMATED 342 10^3/uL (150-450); RED BLOOD COUNT 4.22 10^6/uL (4.00-5.40); WHITE BLOOD COUNT 4.7 10^3/uL (4.0-10.0)
[2024-01-04 16:32] LABS: HEMOGLOBIN A1c 5.7 % (4.0-6.0)
[2024-01-04 16:34] LABS: ALBUMIN 3.6 G/DL (3.2-5.2); ALKALINE PHOSPHATASE 50 U/L (46-116); ALT/SGPT 21 U/L (7.0-40); AST/SGOT 17 U/L (<34); BILIRUBIN,TOTAL 0.4 MG/DL (0.3-1.2); BLOOD UREA NITROGEN 18 MG/DL (9-23); CALCIUM LEVEL 9.5 MG/DL (8.3-10.6); CARBON DIOXIDE LEVEL 33 MMOL/L (20-31); CHLORIDE LEVEL 103 MMOL/L (98-107); CHOLESTEROL LEVEL 203 MG/DL (<200); CREATININE FOR GFR 0.96 MG/DL (0.55-1.30); FREE T4 1.23 NG/DL (0.89-1.76); GLOMERULAR FILTRATION RATE > 60.0 (>39); GLUCOSE, FASTING 85 MG/DL (74-106); HDL CHOLESTEROL 96.4 MG/DL (>40); LDL CHOLESTEROL 92.4 MG/DL (<100); NON-HDL-C 106.6 MG/DL; POTASSIUM SERUM 4.1 MMOL/L (3.5-5.1); SODIUM LEVEL 142 MMOL/L (136-145); THYROID STIMULATING HORMONE 2.429 uIU/ML (0.55-4.78); TOTAL PROTEIN 6.4 G/DL (5.7-8.2); TRIGLYCERIDES LEVEL 71 MG/DL (<150)
[2024-01-04 16:35] LABS: TOTAL 25(OH) VITAMIN D 55.5 NG/ML (20.0-100.0)
== END ==
LOC: M PLALAB 14:09
PROVIDERS: ATTEND Nurse Practitioner Family
DX: I11.9 Hypertensive heart disease without heart failure (principal); R73.01 Impaired fasting glucose; E55.9 Vitamin D deficiency, unspecified; E78.2 Mixed hyperlipidemia; R53.83 Other fatigue

== ENCOUNTER → 2024-01-08 | Outpatient (CLI) | payer BC, MEDICARE | LOC: M WHC 12:52 | PROVIDERS: ATTEND Nurse Practitioner Family | DX: Z12.31 Encounter for screening mammogram for malignant neoplasm of breast (principal) ==

== ENCOUNTER → 2024-06-08 | Outpatient (REF) | payer BC, MEDICARE ==
[2024-06-08 12:45] LABS: APPEARANCE, URINE CLEAR (CLEAR); BACTERIA, URINE AUTO NEGATIVE (NEGATIVE); BILIRUBIN, URINE AUTO NEGATIVE (NEGATIVE); BLOOD, URINE BLOOD NEGATIVE (NEGATIVE); COLOR, URINE STRAW (YELLOW); GLUCOSE, URINE (UA) AUTO NEGATIVE (NEGATIVE); KETONE, URINE AUTO NEGATIVE (NEGATIVE); LEUKOCYTE ESTERASE, URINE AUTO TRACE (NEGATIVE); MUCUS, URINE SMALL (NEGATIVE); NITRITE, URINE AUTO NEGATIVE (NEGATIVE); PROTEIN, URINE AUTO NEGATIVE (NEGATIVE); RBC, URINE AUTO 0 /HPF (0-3); SPECIFIC GRAVITY URINE AUTO 1.009 (1.002-1.035); SQUAMOUS EPITHELIAL CELL UR AU 2 /HPF (0-6); UROBILINOGEN, URINE AUTO 0.2 mg/dL (0.0-2.0); WBC, URINE AUTO 10 /HPF (0-3)
== END ==
LOC: M SFHCPLAZ 12:12
PROVIDERS: ATTEND Nurse Practitioner Family
DX: R39.9 Unspecified symptoms and signs involving the genitourinary system (principal)

== ENCOUNTER → 2024-07-05 | Outpatient (CLI) | payer BC, MEDICARE ==
[2024-07-05 18:20] LABS: APPEARANCE, URINE CLEAR (CLEAR); BACTERIA, URINE AUTO NEGATIVE (NEGATIVE); BILIRUBIN, URINE AUTO NEGATIVE (NEGATIVE); BLOOD, URINE BLOOD NEGATIVE (NEGATIVE); COLOR, URINE YELLOW (YELLOW); GLUCOSE, URINE (UA) AUTO NEGATIVE (NEGATIVE); KETONE, URINE AUTO NEGATIVE (NEGATIVE); LEUKOCYTE ESTERASE, URINE AUTO NEGATIVE (NEGATIVE); NITRITE, URINE AUTO NEGATIVE (NEGATIVE); PROTEIN, URINE AUTO NEGATIVE (NEGATIVE); RBC, URINE AUTO 0 /HPF (0-3); SPECIFIC GRAVITY URINE AUTO 1.014 (1.002-1.035); SQUAMOUS EPITHELIAL CELL UR AU 4 /HPF (0-6); UROBILINOGEN, URINE AUTO 0.2 mg/dL (0.0-2.0); WBC, URINE AUTO 0 /HPF (0-3)
[2024-07-05 18:37] LABS: BASO # 0.1 10^3/uL (0.0-0.2); BASO % 1.3 % (0.0-1.0); EOS # 0.2 10^3/uL (0.0-0.5); EOS % 3.5 % (0.0-3.0); HEMATOCRIT 39.1 % (36.0-47.0); HEMOGLOBIN 12.5 g/dl (12.0-15.5); LYMPH # 1.4 10^3/uL (1.5-5.0); LYMPH % 29.6 % (24.0-44.0); MEAN CORPUSCULAR HEMOGLOBIN 30.3 pg (27.0-33.0); MEAN CORPUSCULAR VOLUME 94.7 fl (80.0-96.0); MONO # 0.5 10^3/uL (0.0-0.8); MONO % 10.2 % (2.0-8.0); NEUTROPHILS # 2.6 10^3/uL (1.5-8.5); NEUTROPHILS % 54.8 % (36.0-66.0); PLATELET COUNT, AUTOMATED 332 10^3/uL (150-450); RED BLOOD COUNT 4.13 10^6/uL (4.00-5.40); WHITE BLOOD COUNT 4.8 10^3/uL (4.0-10.0)
[2024-07-05 19:10] LABS: ALBUMIN 3.7 G/DL (3.2-5.2); BILIRUBIN,TOTAL 0.4 MG/DL (0.3-1.2); CALCIUM LEVEL 10.2 MG/DL (8.3-10.6); CHOLESTEROL RISK RATIO 2.59 (<5); CREATININE FOR GFR 1.16 MG/DL (0.55-1.30); GLOMERULAR FILTRATION RATE 48.6 (>39); HDL CHOLESTEROL 89.5 MG/DL (>40); LDL CHOLESTEROL 129.5 MG/DL (<100); NON-HDL-C 142.5 MG/DL; POTASSIUM SERUM 4.4 MMOL/L (3.5-5.1); TOTAL PROTEIN 6.7 G/DL (5.7-8.2)
[2024-07-05 19:55] LABS: HEMOGLOBIN A1c 5.6 % (4.0-6.0)
== END ==
LOC: M PLALAB 15:23
PROVIDERS: ATTEND Nurse Practitioner Family
DX: I11.9 Hypertensive heart disease without heart failure (principal); E55.9 Vitamin D deficiency, unspecified; R73.01 Impaired fasting glucose; E78.2 Mixed hyperlipidemia

== ENCOUNTER → 2024-10-11 | Outpatient (RCR) | payer MEDICARE | LOC: M PT 09-27 13:50 | PROVIDERS: ATTEND Orthopaedic Surgery | DX: M25.512 Pain in left shoulder (principal) ==

== ENCOUNTER 2024-11-03 12:40 | Outpatient (RCR) | payer MEDICARE | END 2024-11-11 | LOC: M PT 12:40 | PROVIDERS: ATTEND Orthopaedic Surgery | DX: M25.512 Pain in left shoulder (principal); Z87.39 Personal history of other diseases of the musculoskeletal system and connective tissue ==

== ENCOUNTER → 2024-11-08 | Outpatient (CLI) | payer MEDICARE ==
[2024-11-08 15:27] LABS: APPEARANCE, URINE HAZY (CLEAR); BACTERIA, URINE AUTO NEGATIVE (NEGATIVE); BILIRUBIN, URINE AUTO NEGATIVE (NEGATIVE); BLOOD, URINE BLOOD NEGATIVE (NEGATIVE); COLOR, URINE YELLOW (YELLOW); GLUCOSE, URINE (UA) AUTO NEGATIVE (NEGATIVE); KETONE, URINE AUTO NEGATIVE (NEGATIVE); LEUKOCYTE ESTERASE, URINE AUTO NEGATIVE (NEGATIVE); MUCUS, URINE SMALL (NEGATIVE); NITRITE, URINE AUTO NEGATIVE (NEGATIVE); PROTEIN, URINE AUTO NEGATIVE (NEGATIVE); RBC, URINE AUTO 1 /HPF (0-3); SPECIFIC GRAVITY URINE AUTO 1.016 (1.002-1.035); SQUAMOUS EPITHELIAL CELL UR AU 5 /HPF (0-6); UROBILINOGEN, URINE AUTO 0.2 mg/dL (0.0-2.0); WBC, URINE AUTO 0 /HPF (0-3)
== END ==
LOC: M PLALAB 12:21
PROVIDERS: ATTEND Nurse Practitioner Family
DX: R39.9 Unspecified symptoms and signs involving the genitourinary system (principal)

== ENCOUNTER → 2024-11-24 | Outpatient (REF) | payer MEDICARE, BC | LOC: M SFHCPLAZ 14:46 | PROVIDERS: ATTEND Nurse Practitioner Family | DX: N39.0 Urinary tract infection, site not specified (principal) ==

== ENCOUNTER → 2025-01-05 | Outpatient (CLI) | payer MEDICARE, BC ==
[2025-01-05 15:29] LABS: BASO # 0.1 10^3/uL (0.0-0.2); BASO % 1.4 % (0.0-1.0); EOS # 0.1 10^3/uL (0.0-0.5); EOS % 3.2 % (0.0-3.0); HEMATOCRIT 38.1 % (36.0-47.0); LYMPH # 1.3 10^3/uL (1.5-5.0); LYMPH % 28.3 % (24.0-44.0); MEAN CORPUSCULAR HEMOGLOBIN 29.6 pg (27.0-33.0); MEAN CORPUSCULAR HGB CONC 31.5 g/dl (32.0-36.5); MEAN CORPUSCULAR VOLUME 93.8 fl (80.0-96.0); MONO # 0.4 10^3/uL (0.0-0.8); MONO % 9.7 % (2.0-8.0); NEUTROPHILS # 2.5 10^3/uL (1.5-8.5); NEUTROPHILS % 56.7 % (36.0-66.0); PLATELET COUNT, AUTOMATED 363 10^3/uL (150-450); RED BLOOD COUNT 4.06 10^6/uL (4.00-5.40); WHITE BLOOD COUNT 4.4 10^3/uL (4.0-10.0)
[2025-01-05 15:44] LABS: ALBUMIN 3.5 G/DL (3.2-5.2); BILIRUBIN,TOTAL 0.4 MG/DL (0.3-1.2); CALCIUM LEVEL 9.5 MG/DL (8.3-10.6); CHOLESTEROL RISK RATIO 2.31 (<5); CREATININE FOR GFR 1.01 MG/DL (0.55-1.30); HDL CHOLESTEROL 87.7 MG/DL (>40); LDL CHOLESTEROL 98.7 MG/DL (<100); MAGNESIUM LEVEL 1.7 MG/DL (1.8-2.4); NON-HDL-C 115.3 MG/DL; POTASSIUM SERUM 4.4 MMOL/L (3.5-5.1); TOTAL PROTEIN 6.5 G/DL (5.7-8.2)
[2025-01-05 15:45] LABS: THYROID STIMULATING HORMONE 1.767 uIU/ML (0.55-4.78)
[2025-01-05 15:46] LABS: FREE T4 1.3 NG/DL (0.89-1.76)
[2025-01-05 16:46] LABS: HEMOGLOBIN A1c 5.7 % (4.0-6.0)
== END ==
LOC: M PLALAB 14:01
PROVIDERS: ATTEND Nurse Practitioner Family
DX: I11.9 Hypertensive heart disease without heart failure (principal); E55.9 Vitamin D deficiency, unspecified; R53.83 Other fatigue; R73.01 Impaired fasting glucose; R78.2 Finding of cocaine in blood

== ENCOUNTER → 2025-01-09 | Outpatient (CLI) | payer BC, MEDICARE | LOC: M WHC 08:59 | PROVIDERS: ATTEND Nurse Practitioner Family | DX: Z12.31 Encounter for screening mammogram for malignant neoplasm of breast (principal) ==

== ENCOUNTER → 2025-01-16 | Outpatient (REF) | payer MEDICARE, BC ==
[2025-01-16 13:53] LABS: APPEARANCE, URINE CLEAR (CLEAR); BACTERIA, URINE AUTO NEGATIVE (NEGATIVE); BILIRUBIN, URINE AUTO NEGATIVE (NEGATIVE); BLOOD, URINE BLOOD NEGATIVE (NEGATIVE); COLOR, URINE YELLOW (YELLOW); GLUCOSE, URINE (UA) AUTO NEGATIVE (NEGATIVE); KETONE, URINE AUTO NEGATIVE (NEGATIVE); LEUKOCYTE ESTERASE, URINE AUTO NEGATIVE (NEGATIVE); MUCUS, URINE SMALL (NEGATIVE); NITRITE, URINE AUTO NEGATIVE (NEGATIVE); PROTEIN, URINE AUTO NEGATIVE (NEGATIVE); RBC, URINE AUTO 0 /HPF (0-3); SPECIFIC GRAVITY URINE AUTO 1.011 (1.002-1.035); SQUAMOUS EPITHELIAL CELL UR AU 2 /HPF (0-6); UROBILINOGEN, URINE AUTO 0.2 mg/dL (0.0-2.0); WBC, URINE AUTO 1 /HPF (0-3)
== END ==
LOC: M SMT 12:50
PROVIDERS: ATTEND Physician Assistant
DX: N39.46 Mixed incontinence (principal)

== ENCOUNTER → 2025-01-25 | Outpatient (CLI) | payer MEDICARE | LOC: M PLAIMG 07:51 | PROVIDERS: ATTEND Nurse Practitioner Family | DX: R51.9 Headache, unspecified (principal) ==

== ENCOUNTER 2025-02-01 06:27 | Emergency (ER) | payer MEDICARE ==
[~2025-02-01] VITALS: Ht 157.5 cm; Wt 83.5 kg
[2025-02-01 07:22] LABS: BASO # 0.1 10^3/uL (0.0-0.2); BASO % 0.8 % (0.0-1.0); EOS # 0.1 10^3/uL (0.0-0.5); EOS % 2.3 % (0.0-3.0); HEMATOCRIT 36.9 % (36.0-47.0); HEMOGLOBIN 11.7 g/dl (12.0-15.5); LYMPH # 2.1 10^3/uL (1.5-5.0); LYMPH % 34.3 % (24.0-44.0); MEAN CORPUSCULAR HEMOGLOBIN 29.8 pg (27.0-33.0); MEAN CORPUSCULAR HGB CONC 31.7 g/dl (32.0-36.5); MEAN CORPUSCULAR VOLUME 93.9 fl (80.0-96.0); MONO # 0.6 10^3/uL (0.0-0.8); MONO % 10.6 % (2.0-8.0); NEUTROPHILS # 3.1 10^3/uL (1.5-8.5); NEUTROPHILS % 51.3 % (36.0-66.0); PLATELET COUNT, AUTOMATED 342 10^3/uL (150-450); RED BLOOD COUNT 3.93 10^6/uL (4.00-5.40)
[2025-02-01 07:35] LABS: INR 0.93; PROTHROMBIN TIME 12.7 SECONDS (12.5-14.5)
[2025-02-01 07:54] LABS: CK-MB VALUE MASS 1.7 NG/ML (<3.6)
[2025-02-01 07:57] LABS: CALCIUM LEVEL 8.9 MG/DL (8.3-10.6); CREATININE FOR GFR 1.4 MG/DL (0.55-1.30); GLOMERULAR FILTRATION RATE 39.5 (>39); MAGNESIUM LEVEL 1.7 MG/DL (1.8-2.4); POTASSIUM SERUM 4.3 MMOL/L (3.5-5.1)
[2025-02-01 07:58] LABS: THYROID STIMULATING HORMONE 4.553 uIU/ML (0.55-4.78)
[2025-02-01 08:05] LABS: FOLATE 9.26 NG/ML (>5.4); MB/CK RELATIVE INDEX 1.34 (< OR =4)
[2025-02-01 08:06] VITALS: BP 144/68; TEMP 98.7; O2SAT 98
[2025-02-01] MEDS: MAG SULF 1GM/100ML (MAG RUN) 1 GM in IV 1 EA IV ONE (10:27)
[2025-02-01 11:45] VITALS: BP 150/72; TEMP 97.9; O2SAT 95
== END 2025-02-01 12:04 | disposition home or self-care (01) ==
LOC: M ED 06:27
DX: R20.2 Paresthesia of skin (principal); E83.42 Hypomagnesemia; I10 Essential (primary) hypertension; E78.5 Hyperlipidemia, unspecified; J44.9 Chronic obstructive pulmonary disease, unspecified; J45.909 Unspecified asthma, uncomplicated; Z88.1 Allergy status to other antibiotic agents; Z79.1 Long term (current) use of non-steroidal anti-inflammatories (NSAID); Z79.2 Long term (current) use of antibiotics; Z79.51 Long term (current) use of inhaled steroids; Z79.899 Other long term (current) drug therapy
CPT/HCPCS: 70450; 71045; 80047; 80048; 82550; 82553; 82607; 82746; 83735; 84443; 84484; 85025; 85610; 85730; 93005; 93041; 94760; 96365; 99285; J3475

== ENCOUNTER → 2025-02-09 | Outpatient (CLI) | payer MEDICARE ==
[2025-02-09 19:34] LABS: CALCIUM LEVEL 10.4 MG/DL (8.3-10.6); CREATININE FOR GFR 1.09 MG/DL (0.55-1.30); GLOMERULAR FILTRATION RATE 53.3 (>39)
== END ==
LOC: M PLALAB 14:23
PROVIDERS: ATTEND Nurse Practitioner Family
DX: N28.9 Disorder of kidney and ureter, unspecified (principal)

== ENCOUNTER 2025-02-10 15:47 | Emergency (ER) | payer MEDICARE ==
[~2025-02-10] VITALS: Ht 157.5 cm; Wt 84.1 kg
[2025-02-10 15:54] VITALS: TEMP 96.8
[2025-02-10 16:40] LABS: BASO # 0.1 10^3/uL (0.0-0.2); EOS # 0.2 10^3/uL (0.0-0.5); EOS % 3.1 % (0.0-3.0); HEMATOCRIT 40.9 % (36.0-47.0); HEMOGLOBIN 12.8 g/dl (12.0-15.5); LYMPH # 1.3 10^3/uL (1.5-5.0); LYMPH % 27.4 % (24.0-44.0); MEAN CORPUSCULAR HEMOGLOBIN 29.2 pg (27.0-33.0); MEAN CORPUSCULAR HGB CONC 31.3 g/dl (32.0-36.5); MEAN CORPUSCULAR VOLUME 93.2 fl (80.0-96.0); MONO # 0.5 10^3/uL (0.0-0.8); MONO % 9.4 % (2.0-8.0); NEUTROPHILS # 2.9 10^3/uL (1.5-8.5); NEUTROPHILS % 58.5 % (36.0-66.0); PLATELET COUNT, AUTOMATED 356 10^3/uL (150-450); RED BLOOD COUNT 4.39 10^6/uL (4.00-5.40); WHITE BLOOD COUNT 4.9 10^3/uL (4.0-10.0)
[2025-02-10] MEDS ORDERED: ISOVUE-370 76% 100ML VIAL As Ordered ONE (16:47)
[2025-02-10 17:04] LABS: CALCIUM LEVEL 9.9 MG/DL (8.3-10.6); CREATININE FOR GFR 1.13 MG/DL (0.55-1.30); GLOMERULAR FILTRATION RATE 51.1 (>39); MAGNESIUM LEVEL 1.7 MG/DL (1.8-2.4); POTASSIUM SERUM 4.5 MMOL/L (3.5-5.1)
[2025-02-10 17:06] LABS: INR 0.88; PARTIAL THROMBOPLASTIN TIME 29.7 SECONDS (24.8-34.2); PROTHROMBIN TIME 12.2 SECONDS (12.5-14.5)
[2025-02-10] MEDS: MAG SULF 1GM/100ML (MAG RUN) 1 GM in IV 1 EA IV ONE (18:39)
[2025-02-10 18:47] LABS: KETONE, URINE AUTO RFX NEGATIVE (NEGATIVE); LEUKOCYTE ESTERASE UR AUTO RFX NEGATIVE (NEGATIVE); NITRITE, URINE AUTO RFX NEGATIVE (NEGATIVE); RBC, URINE AUTO RFX 1 /HPF (0-3); SQUAM EPITHELIAL CELL UR AURFX 2 /HPF (0-6); WBC, URINE AUTO RFX 0 /HPF (0-3)
[2025-02-10 19:30] VITALS: BP 151/79; O2SAT 97
== END 2025-02-10 20:11 | disposition home or self-care (01) ==
LOC: M ED 15:47
DX: R20.2 Paresthesia of skin (principal); E83.42 Hypomagnesemia; E11.9 Type 2 diabetes mellitus without complications; I10 Essential (primary) hypertension; K21.9 Gastro-esophageal reflux disease without esophagitis; G47.30 Sleep apnea, unspecified; E78.5 Hyperlipidemia, unspecified; Z88.1 Allergy status to other antibiotic agents; Z79.52 Long term (current) use of systemic steroids; Z79.899 Other long term (current) drug therapy
CPT/HCPCS: 70450; 70496; 70498; 70551; 71045; 80047; 80048; 81001; 83735; 85025; 85610; 85730; 93005; 93041; 94760; 96365; 96366; 99284; J3475; Q9967

== ENCOUNTER → 2025-02-15 | Outpatient (CLI) | payer MEDICARE ==
[2025-02-17 00:48] LABS: CARDIOLIPIN IGA ANTIBODY < 2.0 APL-U/mL (<20.0); CARDIOLIPIN IGG ANTIBODY < 2.0 GPL-U/mL (<20.0)
[2025-02-17 13:47] LABS: ANTI SMITH(Sm) AB <1.0 NEG AI (<1.0 NEG); ANTI-U1 RNP AB <1.0 NEG AI (<1.0 NEG); SSA SJOGRENS A <1.0 NEG AI (<1.0 NEG); SSB SJOGRENS B <1.0 NEG AI (<1.0 NEG)
[2025-02-17 15:43] LABS: ANA PATTERN Nuclear, Homogeneous (NEGATIVE); ANA PATTERN 2 Nuclear, Speckled; ANA SCREEN, IFA POSITIVE (NEGATIVE)
== END ==
LOC: M PLALAB 10:24
PROVIDERS: ATTEND Psychiatry & Neurology Neurology
DX: E53.8 Deficiency of other specified B group vitamins (principal); Z86.73 Personal history of transient ischemic attack (TIA), and cerebral infarction without residual deficits

== ENCOUNTER → 2025-02-17 | Outpatient (CLI) | payer BC, MEDICARE | LOC: M PLALAB 14:12 | PROVIDERS: ATTEND Nurse Practitioner Family | DX: E83.42 Hypomagnesemia (principal) ==

== ENCOUNTER → 2025-05-13 | Outpatient (REF) | payer MEDICARE ==
[~2025-05-13] MED LIST changes: -PRAV80TA2 PO; +PRAV80TA75 PO
[2025-05-13 14:14] LABS: APPEARANCE, URINE CLEAR (CLEAR); BACTERIA, URINE AUTO NEGATIVE (NEGATIVE); BILIRUBIN, URINE AUTO NEGATIVE (NEGATIVE); BLOOD, URINE BLOOD NEGATIVE (NEGATIVE); GLUCOSE, URINE (UA) AUTO NEGATIVE (NEGATIVE); KETONE, URINE AUTO NEGATIVE (NEGATIVE); LEUKOCYTE ESTERASE, URINE AUTO TRACE (NEGATIVE); NITRITE, URINE AUTO NEGATIVE (NEGATIVE); PROTEIN, URINE AUTO NEGATIVE (NEGATIVE); RBC, URINE AUTO 0 /HPF (0-3); SPECIFIC GRAVITY URINE AUTO 1.011 (1.002-1.035); SQUAMOUS EPITHELIAL CELL UR AU 1 /HPF (0-6); UROBILINOGEN, URINE AUTO 0.2 mg/dL (0.0-2.0); WBC, URINE AUTO 1 /HPF (0-3)
== END ==
LOC: M LAB REF 13:35
PROVIDERS: ATTEND Nurse Practitioner Family
DX: R39.9 Unspecified symptoms and signs involving the genitourinary system (principal)

== ENCOUNTER → 2025-06-26 | Outpatient (CLI) | payer BC, MEDICARE ==
[~2025-06-26] MED LIST changes: +CRAN500T4 PO; -HM C500T4 PO
[2025-06-26 16:08] LABS: BASO # 0.1 10^3/uL (0.0-0.2); BASO % 1.3 % (0.0-1.0); EOS # 0.2 10^3/uL (0.0-0.5); EOS % 3.4 % (0.0-3.0); LYMPH # 1.7 10^3/uL (1.5-5.0); LYMPH % 30.2 % (24.0-44.0); MONO # 0.5 10^3/uL (0.0-0.8); MONO % 8.9 % (2.0-8.0); NEUTROPHILS # 3.1 10^3/uL (1.5-8.5); NEUTROPHILS % 55.8 % (36.0-66.0); PLATELET COUNT, AUTOMATED 353 10^3/uL (150-450)
[2025-06-26 16:52] LABS: ESTIMATED AVERAGE GLUCOSE 126.0 MG/DL (60-110)
[2025-06-26 17:34] LABS: ALT/SGPT 20.0 U/L (7.0-40); AST/SGOT 20.0 U/L (<34); CALCIUM LEVEL 9.2 MG/DL (8.3-10.6); CARBON DIOXIDE LEVEL 35.0 MMOL/L (20-31); CHLORIDE LEVEL 103.0 MMOL/L (98-107); CHOLESTEROL LEVEL 213.0 MG/DL (<200); CHOLESTEROL RISK RATIO 2.17 (<5); CREATININE FOR GFR 1.11 MG/DL (0.55-1.30); GLOMERULAR FILTRATION RATE 51.8 (>39); LDL CHOLESTEROL 102.1 MG/DL (<100); MAGNESIUM LEVEL 1.9 MG/DL (1.8-2.4); NON-HDL-C 114.9 MG/DL; POTASSIUM SERUM 5.0 MMOL/L (3.5-5.1); SODIUM LEVEL 143.0 MMOL/L (136-145); TRIGLYCERIDES LEVEL 64.0 MG/DL (<150)
== END ==
LOC: M PLALAB 13:53
PROVIDERS: ATTEND Nurse Practitioner Family
DX: R73.01 Impaired fasting glucose (principal); E78.2 Mixed hyperlipidemia; E55.9 Vitamin D deficiency, unspecified; I11.9 Hypertensive heart disease without heart failure

== ENCOUNTER → 2025-08-16 | Outpatient (CLI) | payer BC ==
[2025-08-16 15:29] LABS: PLATELET COUNT, AUTOMATED 473 10^3/uL (150-450)
[2025-08-16 15:38] LABS: ALT/SGPT 22.0 U/L (7.0-40); AST/SGOT 20.0 U/L (<34); CALCIUM LEVEL 10.4 MG/DL (8.3-10.6); CARBON DIOXIDE LEVEL 33.0 MMOL/L (20-31); CHLORIDE LEVEL 99.0 MMOL/L (98-107); CREATININE FOR GFR 1.43 MG/DL (0.55-1.30); GLOMERULAR FILTRATION RATE 38.3 (>39); POTASSIUM SERUM 5.4 MMOL/L (3.5-5.1); SODIUM LEVEL 141.0 MMOL/L (136-145)
[2025-08-16 15:46] LABS: INR 0.91
== END ==
LOC: M PLALAB 12:24
PROVIDERS: ATTEND Urology
DX: N39.3 Stress incontinence (female) (male) (principal)

== ENCOUNTER → 2025-08-22 | Outpatient (REF) | payer BC | LOC: M SFHCPLAZ 19:11 | PROVIDERS: ATTEND Family Medicine | DX: Z53.9 Procedure and treatment not carried out, unspecified reason (principal) ==

== ENCOUNTER 2025-08-27 10:26 | Emergency (ER) | payer BC ==
[~2025-08-27] VITALS: Ht 157.5 cm; Wt 83.6 kg
[~2025-08-27 10:26] MED LIST changes: -LEVOTAB10; +LEVOTAB10 PO
[2025-08-27 11:32] LABS: KETONE, URINE AUTO RFX NEGATIVE (NEGATIVE); NITRITE, URINE AUTO RFX NEGATIVE (NEGATIVE); RBC, URINE AUTO RFX TNTC /HPF (0-3); SQUAM EPITHELIAL CELL UR AURFX 2 /HPF (0-6)
[2025-08-27 11:33] LABS: LEUKOCYTE ESTERASE UR AUTO RFX 3+ (NEGATIVE); WBC, URINE AUTO RFX TNTC /HPF (0-3)
[2025-08-27] MEDS ORDERED: FLUC150T9 PO (12:00)
[2025-08-27] MEDS ORDERED: SULF1TAB23 PO (12:00)
[2025-08-27] MEDS ORDERED: PHEN-372 PO (12:00)
[2025-08-27 12:05] VITALS: BP 127/82; TEMP 97.8; O2SAT 96
[2025-08-31] MEDS ORDERED: IPRA6SP (10:46)
[2025-08-31] MEDS ORDERED: ASPI81TA26 PO (10:46)
[2025-08-31] MEDS ORDERED: IPRA3SP (10:46)
[2025-08-31] MEDS ORDERED: OMEGA PO (10:46)
[2025-08-31] MEDS ORDERED: CEFP100T PO (10:46)
[2025-08-31] MEDS ORDERED: UQORA PO (10:46)
[2025-08-31] MEDS ORDERED: TUMERIC PO (10:46)
[2025-08-31] MEDS ORDERED: OXYB10TA23 PO (10:46)
[2025-08-31] MEDS ORDERED: RA M500C PO (10:46)
[2025-08-31] MEDS ORDERED: CLOB5CR TOP (10:46)
[2025-08-31] MEDS ORDERED: B-12100021 PO (10:46)
[2025-08-31] MEDS ORDERED: FLUT50SP33 (10:46)
[2025-08-31] MEDS ORDERED: [UNRECOGNIZED DRUG - OTHER] PO (10:46)
== END 2025-08-27 12:06 | disposition home or self-care (01) ==
LOC: M ED 10:26
DX: N39.0 Urinary tract infection, site not specified (principal); I10 Essential (primary) hypertension; K21.9 Gastro-esophageal reflux disease without esophagitis; Z88.1 Allergy status to other antibiotic agents; Z88.8 Allergy status to other drugs, medicaments and biological substances; Z79.52 Long term (current) use of systemic steroids; Z79.899 Other long term (current) drug therapy; Z79.2 Long term (current) use of antibiotics

== ENCOUNTER → 2025-09-05 | Outpatient (CLI) | payer MEDICARE ==
[~2025-09-05] MED LIST changes: +ASPI81TA26 PO; +B-12100021 PO; +CEFP100T PO; +CLOB5CR TOP; +FLUC150T9 PO; +FLUT50SP33; +IPRA3SP; +IPRA6SP; +OMEGA PO; +OXYB10TA23 PO; +PHEN-372 PO; +RA M500C PO; +SULF-7 PO; +TUMERIC PO; +UQORA PO; +[UNRECOGNIZED DRUG - OTHER] PO
== END ==
LOC: M PLALAB 13:13
PROVIDERS: ATTEND Urology
DX: N39.3 Stress incontinence (female) (male) (principal)

== ENCOUNTER → 2025-09-05 | Outpatient (CLI) | payer MEDICARE ==
[~2025-09-05] MED LIST changes: +PYRI1TAB5 PO
[2025-09-05 15:24] LABS: CALCIUM LEVEL 9.3 MG/DL (8.3-10.6); CARBON DIOXIDE LEVEL 35.0 MMOL/L (20-31); CHLORIDE LEVEL 98.0 MMOL/L (98-107); CREATININE FOR GFR 1.13 MG/DL (0.55-1.30); GLOMERULAR FILTRATION RATE 50.7 (>39); POTASSIUM SERUM 5.1 MMOL/L (3.5-5.1); SODIUM LEVEL 140.0 MMOL/L (136-145)
== END ==
LOC: M PLALAB 13:10
DX: Z01.818 Encounter for other preprocedural examination (principal); N39.3 Stress incontinence (female) (male)

== ENCOUNTER 2025-09-14 08:29 | Day surgery (SDC) | payer MEDICARE ==
[~2025-09-14] VITALS: Ht 157.5 cm; Wt 84.0 kg
[~2025-09-14 08:29] MED LIST changes: -PYRI1TAB5 PO
[2025-09-14] MEDS ORDERED: ACETAMINOPHEN 1000MG/100ML IV BAG As Ordered ONE (08:49)
[2025-09-14] MEDS ORDERED: dexAMETHasone 4 MG/ML 1 ML VIAL As Ordered ONE (08:50)
[2025-09-14] MEDS ORDERED: LIDOCAINE 2% 100 MG/5 ML SDV (FOR ANES.) As Ordered ONE (08:50)
[2025-09-14] MEDS ORDERED: ONDANSETRON 4MG/2ML VIAL As Ordered ONE (08:50)
[2025-09-14] MEDS: LR 1,000 ML IV SCH (08:55)
[2025-09-14] MEDS: ceFAZolin SOD 2 GM IV ONCE IV ONE (09:39)
[2025-09-14] MEDS: LIDOCAINE 2% 5 ML JELLY UROJET As Ordered ONE (09:50)
[2025-09-14] MEDS ORDERED: MORPHINE 2 MG/ML 1 ML VIAL IV PRN (10:05)
[2025-09-14] MEDS ORDERED: PYRI1TAB5 PO (10:05)
[2025-09-14] MEDS ORDERED: HYDROMORPHONE HCL 0.5 MG/0.5 ML SYRINGE IV PRN (10:05)
[2025-09-14] MEDS ORDERED: MEPERIDINE 25 MG/ML 1 ML VIAL IV PRN (10:05)
[2025-09-14 12:00] VITALS: BP 137/75; TEMP 96.6; O2SAT 95
== END 2025-09-14 12:08 | disposition home or self-care (01) ==
LOC: M SDC 08:29
PROVIDERS: ATTEND Urology
DX: N39.3 Stress incontinence (female) (male) (principal); I10 Essential (primary) hypertension; E78.00 Pure hypercholesterolemia, unspecified; J45.909 Unspecified asthma, uncomplicated; K21.9 Gastro-esophageal reflux disease without esophagitis; G47.30 Sleep apnea, unspecified; Z79.82 Long term (current) use of aspirin; Z79.899 Other long term (current) drug therapy; Z90.710 Acquired absence of both cervix and uterus; L12.0 Bullous pemphigoid; Z88.1 Allergy status to other antibiotic agents; Z88.8 Allergy status to other drugs, medicaments and biological substances
CPT/HCPCS: 51715; A4649; J0131; J0688; J1100; J2405; J3010; L8606

== ENCOUNTER 2025-09-24 11:27 | Emergency (ER) | payer MEDICARE ==
[~2025-09-24] VITALS: Ht 157.5 cm; Wt 82.4 kg
[~2025-09-24 11:27] MED LIST changes: +PYRI1TAB5 PO
[2025-09-24 11:34] VITALS: BP 142/69; TEMP 97.1; O2SAT 96
[2025-09-24 12:09] LABS: KETONE, URINE AUTO RFX NEGATIVE (NEGATIVE); NITRITE, URINE AUTO RFX NEGATIVE (NEGATIVE); RBC, URINE AUTO RFX 2 /HPF (0-3); SQUAM EPITHELIAL CELL UR AURFX 3 /HPF (0-6); WBC, URINE AUTO RFX 6 /HPF (0-3)
[2025-09-24 12:19] LABS: LEUKOCYTE ESTERASE UR AUTO RFX TRACE (NEGATIVE)
== END 2025-09-24 14:27 | disposition home or self-care (01) ==
LOC: M ED 11:27
DX: R33.9 Retention of urine, unspecified (principal); K21.9 Gastro-esophageal reflux disease without esophagitis; E78.5 Hyperlipidemia, unspecified; I10 Essential (primary) hypertension; J45.909 Unspecified asthma, uncomplicated; Z88.1 Allergy status to other antibiotic agents; Z88.8 Allergy status to other drugs, medicaments and biological substances; Z79.52 Long term (current) use of systemic steroids; Z79.899 Other long term (current) drug therapy; Z79.82 Long term (current) use of aspirin; Z79.2 Long term (current) use of antibiotics